=== PATIENT | female | born 1955 | race Hispanic/Latino ===

== ENCOUNTER 2016-11-17 08:53 | Outpatient (CLI) | payer BC ==
[2016-11-17 09:12] LABS: Basophils % (Auto) 0.8 % (0.0-1.8); Hematocrit 44.6 % (30.3-42.9); Hemoglobin 14.5 gm/dl (10.1-14.3); Mean Corpuscular HGB Conc 33 % (30-34); Mean Corpuscular Hemoglobin 30 pg (28-32); Mean Corpuscular Volume 91 fl (79-97); Platelet Count 242 K/mm3 (140-440); Red Blood Count 4.89 M/mm3 (3.65-5.03); Red Cell Distribution Width 13.2 % (13.2-15.2); White Blood Count 7.7 K/mm3 (4.5-11.0)
[2016-11-17 09:27] LABS: Alanine Aminotransferase 21 units/L (7-56); Albumin 4.2 g/dL (3.9-5); Albumin/Globulin Ratio 1.6 %; Alkaline Phosphatase 79 units/L (35-129); Anion Gap 16 mmol/L; BUN/Creatinine Ratio 18.75; Bilirubin,Total 0.3 mg/dL (0.1-1.2); Blood Urea Nitrogen 15 mg/dL (7-17); Carbon Dioxide 28 mmol/L (22-30); Chloride 101.3 mmol/L (98-107); Cholesterol 151 mg/dL (50-199); Glucose 99 mg/dL (65-100); HDL Cholesterol 71 mg/dL (40-59); LDL Cholesterol,Direct 55 mg/dL (50-130); Potassium 4.3 mmol/L (3.6-5.0); Sodium 141 mmol/L (137-145); Total Protein 6.9 g/dL (6.3-8.2); Triglycerides 128 mg/dL (2-149)
[2016-11-19 17:31] LABS: Vitamin D, 25-OH, Total 49 ng/mL (30-100)
== END 2016-11-17 08:54 | disposition home or self-care (01) ==
LOC: LAB 08:53
PROVIDERS: ATTEND Internal Medicine
DX: I10 Essential (primary) hypertension (principal); M80.08XD Age-related osteoporosis with current pathological fracture, vertebra(e), subsequent encounter for fracture with routine healing
CPT/HCPCS: 36415; 80053; 80061; 82306; 84436; 84443; 85025

== ENCOUNTER 2017-01-08 07:55 | Outpatient (CLI) | payer BC ==
[2017-01-08] MEDS ORDERED: PROVENTIL IH ONE (07:57)
--- NOTE | 2017-01-11 04:45 | Pulmonary Function Test ---
PULMONARY FUNCTION TEST. INTERPRETATION: Spirometry, forced vital capacity is mildly reduced below predicted values for age and height (2.44 liters). One second forced expiratory volume (FEV1) is within normal limits (2.06 liters). Flow volume loop shows normal inspiratory and expiratory flow pattern. Peak flow is normal. FEV1/FVC ratio is normal. Maximum voluntary ventilation is normal. Lung volumes obtained by nitrogen washout shows a slight reduction in thoracic gas volumes. Single breath diffusion of carbon monoxide is at lower limits of normal. Bronchodilator: There is no change in mechanics noted. Oximetry resting room air 93%. IMPRESSION: Normal pulmonary function study, maybe a minimal degree of restriction based on low vital capacity. No change in mechanics after bronchodilator. Failure to respond to nebulized bronchodilator in the laboratory should not preclude a clinical trial. JOB# [id number] [facility]/BETO
== END 2017-01-08 07:56 | disposition home or self-care (01) ==
LOC: PF 07:55
PROVIDERS: ATTEND Internal Medicine
DX: J45.20 Mild intermittent asthma, uncomplicated (principal)
CPT/HCPCS: 94060; 94640; 94727; 94729

== ENCOUNTER 2017-04-05 07:27 | Outpatient (CLI) | payer BC ==
[2017-04-05 08:18] LABS: Blood Urea Nitrogen 13 mg/dL (7-17)
--- NOTE | 2017-04-05 09:01 | Magnetic Resonance Report ---
MRI BRAIN WITH/WITHOUT CONTRAST: History: Headaches. Technique: Multiple T1 and T2 weighted images were obtained in multiple planes. Axial diffusion and gradient imaging was performed. Post contrast T1 images in two planes were obtained following IV gadolinium. COMPARISON: No relevant comparison at this facility. Findings: The brain parenchyma signal intensity and its alfaro-white interface are normal on all sequences. No abnormal parenchymal signal. No diffusion restriction, hemorrhage, mass effect or extra-axial fluid collection. Ventricular size is normal and symmetric. The basal cisterns are clear. The brainstem and cerebellar hemispheres are within normal limits. The fourth ventricle is midline. The paranasal sinuses and mastoid air cells are well aerated. Normal flow voids are identified in the appropriate vessels at the [place] of [place]. No abnormal enhancement is identified following IV gadolinium. Impression: 1. Unremarkable MRI brain with and without contrast.
== END 2017-04-05 07:28 | disposition home or self-care (01) ==
LOC: MRI 07:27
PROVIDERS: ATTEND Specialist
DX: R51 Headache (principal); R41.3 Other amnesia; R25.1 Tremor, unspecified; I10 Essential (primary) hypertension; J45.909 Unspecified asthma, uncomplicated; E78.00 Pure hypercholesterolemia, unspecified
CPT/HCPCS: 36415; 70553; 82565; 84520; 95819; A9577

== ENCOUNTER 2017-07-06 09:19 | Outpatient (CLI) | payer BC ==
--- NOTE | 2017-07-06 10:26 | Mammography Report ---
Screening mammogram: Bilateral mammotomograms in CC and lateral projections along with 2-D compiled images are obtained. Comparison is made to standard images from May 2016. There is a heterogeneous dense symmetrically distributed fibroglandular pattern. On the 2-D images no interval changes are noted. 2 small benign appearing nodules noted on the standard and brit[place] images of the right breast. No new findings. CAD used. Impression: Stable, benign breast pattern. Recommendation: Annual mammogram followup. BI-RADS CATEGORY: 1 = Negative ACR BI-RADS MAMMOGRAPHIC CODES: 0 = Needs additional imaging evaluation; 1 = Negative; 2 = Benign; 3 = Probably benign; 4 = Suspicious; 5 = Malignant; 6 = Known biopsy-proven malignancy COMMENT: 1. Dense breast tissue, i.e., adenosis, fibrocystic changes, etc., may obscure an underlying neoplasm. 2. Approximately 10% of cancers are not detected with mammography. 3. A negative mammography report should not delay biopsy if a clinically suspicious mass is present.
== END 2017-07-06 09:20 | disposition home or self-care (01) ==
LOC: MAMMO 09:19
PROVIDERS: ATTEND Obstetrics & Gynecology
DX: Z12.31 Encounter for screening mammogram for malignant neoplasm of breast (principal)
CPT/HCPCS: 77063; G0202; 77067

== ENCOUNTER 2017-11-30 09:19 | Outpatient (CLI) | payer BC ==
[2017-11-30 09:49] LABS: Basophils # (Auto) 0.1 K/mm3 (0.0-0.1); Basophils % (Auto) 0.8 % (0.0-1.8); Eosinophils # (Auto) 0.1 K/mm3 (0.0-0.4); Eosinophils % (Auto) 1.4 % (0.0-4.3); Hematocrit 44.3 % (30.3-42.9); Lymphocytes # (Auto) 2.3 K/mm3 (1.2-5.4); Lymphocytes % (Auto) 27.8 % (13.4-35.0); Mean Corpuscular HGB Conc 34 % (30-34); Mean Corpuscular Hemoglobin 31 pg (28-32); Mean Corpuscular Volume 90 fl (79-97); Monocytes # (Auto) 0.6 K/mm3 (0.0-0.8); Monocytes % (Auto) 6.7 % (0.0-7.3); Platelet Count 277 K/mm3 (140-440); Red Blood Count 4.91 M/mm3 (3.65-5.03); Red Cell Distribution Width 12.9 % (13.2-15.2)
[2017-11-30 10:02] LABS: Alanine Aminotransferase 23 units/L (7-56); Albumin 4.3 g/dL (3.9-5); BUN/Creatinine Ratio 14; Blood Urea Nitrogen 11 mg/dL (7-17); Calcium 9.2 mg/dL (8.4-10.2); Chol/HDL Ratio 2.57 %; HDL Cholesterol 57 mg/dL (40-59); Hemolysis Index 7
[2017-11-30 10:05] LABS: LDL Cholesterol,Direct 71 mg/dL (50-130)
[2017-11-30 10:21] LABS: Free T4 (Free Thyroxine) 1.14 ng/dL (0.76-1.46)
== END 2017-11-30 09:20 | disposition home or self-care (01) ==
LOC: LAB 09:19
PROVIDERS: ATTEND Internal Medicine
DX: I10 Essential (primary) hypertension (principal); E03.9 Hypothyroidism, unspecified; E78.2 Mixed hyperlipidemia
CPT/HCPCS: 36415; 80053; 80061; 84439; 84443; 85025

== ENCOUNTER 2017-12-21 08:50 | Outpatient (CLI) | payer BC ==
[2017-12-21] MEDS ORDERED: LEXISCAN IV ONE (09:53)
--- NOTE | 2017-12-22 00:17 | Treadmill Report ---
STRESS TEST INDICATION: Chest pain. ORDERING PHYSICIAN: Dr. Manuel Ludwig. FINDINGS: There is no scintigraphic evidence of myocardial ischemia. The left ventricle is normal in size and systolic function. The left ventricular ejection fraction is measured at 65%. There is normal wall motion and wall thickening on gated imaging. CONCLUSION: 1. Normal perfusion scan. 2. Low risk myocardial perfusion scan associated with 1-year cardiovascular event rate of less than 1%. JOB# [id number] [facility]/BETO
[2017-12-24 13:42] VITALS: BP 131/86
== END 2017-12-21 08:51 | disposition home or self-care (01) ==
LOC: CARD 08:50
PROVIDERS: ATTEND Internal Medicine
DX: R07.89 Other chest pain (principal)
CPT/HCPCS: 78452; 93017; A9502; J2785

== ENCOUNTER 2018-05-17 11:23 | Outpatient (CLI) | payer BC ==
[2018-05-17 11:42] LABS: Hematocrit 46.9 % (30.3-42.9); Hemoglobin 15.7 gm/dl (10.1-14.3); Mean Corpuscular HGB Conc 34 % (30-34); Mean Corpuscular Hemoglobin 31 pg (28-32); Mean Corpuscular Volume 91 fl (79-97); Platelet Count 319 K/mm3 (140-440); Red Blood Count 5.15 M/mm3 (3.65-5.03); Red Cell Distribution Width 13.7 % (13.2-15.2)
[2018-05-17 11:44] LABS: Bilirubin,Urine NEG (Negative); Blood,Urine NEG (Negative); Color,Urine Yellow (Yellow); Protein,Urine <15 mg/dL mg/dL (Negative); Urobilinogen,Urine < 2.0 mg/dL (<2.0)
[2018-05-17 12:08] LABS: Alanine Aminotransferase 17 units/L (7-56); Albumin 4.3 g/dL (3.9-5); BUN/Creatinine Ratio 14; Blood Urea Nitrogen 10 mg/dL (7-17); Calcium 9.4 mg/dL (8.4-10.2); Hemolysis Index 7
== END 2018-05-17 11:24 | disposition home or self-care (01) ==
LOC: LAB 11:23
PROVIDERS: ATTEND Specialist
DX: M05.70 Rheumatoid arthritis with rheumatoid factor of unspecified site without organ or systems involvement (principal); M32.10 Systemic lupus erythematosus, organ or system involvement unspecified; Z79.899 Other long term (current) drug therapy
CPT/HCPCS: 36415; 80053; 81001; 85027

== ENCOUNTER 2018-05-24 09:40 | Outpatient (CLI) | payer BC ==
--- NOTE | 2018-05-28 10:35 | Mammography Report ---
BONE DENSITY STUDY: Postmenopausal osteoporosis screening. DEFINITIONS: BMD = Bone Mineral Density T-score = BMD related to mean peak bone mass of young adult (mean expressed in Standard Deviation) Z-score = Age matched BMD expressed in SD World Health Organization (WHO) Diagnostic Criteria Normal T-score > -1 SD Osteopenia T-score between -1 and -2.4 SD Osteoporosis T-score -2.5 SD or below FINDINGS: The weighted average BMD of lumbar spine L1-L4 is 0.976 with a T-score of -0.6. There is significant levoscoliosis with focal sclerosis involving L3. The weighted average BMD of the left hip is 0.803 with a T-score of -1.1. The femoral neck BMD is 0.581 with a T. value score of -2.4. Compared to her prior examination of April 2016 there has been generalized decrease in the overall bone mineralization of the lumbar spine and hip. IMPRESSION: The patient's average T-score is diagnostic for osteopenia and average relative risk for fracture. NOTE: BMD is not the only risk factor for fracture; also consider factors such as the patient's age, risk of falling, previous osteoporotic fracture, family history of osteoporotic fractures, current smoker, and low body weight. Abdul's triangle is a region of interest in femur, predominantly of trabecular bone. It is not a true anatomic site, and [facility] does not recommend its use clinically.
== END 2018-05-24 09:41 | disposition home or self-care (01) ==
LOC: MAMMO 09:40
PROVIDERS: ATTEND Internal Medicine
DX: Z13.820 Encounter for screening for osteoporosis (principal); M85.88 Other specified disorders of bone density and structure, other site; I10 Essential (primary) hypertension; E78.2 Mixed hyperlipidemia; E03.9 Hypothyroidism, unspecified; J45.909 Unspecified asthma, uncomplicated; Z68.30 Body mass index [BMI] 30.0-30.9, adult; Z79.899 Other long term (current) drug therapy
CPT/HCPCS: 77080

== ENCOUNTER 2018-06-06 09:28 | Outpatient (CLI) | payer BC ==
[2018-06-06 09:52] LABS: Basophils # (Auto) 0.1 K/mm3 (0.0-0.1); Basophils % (Auto) 0.9 % (0.0-1.8); Eosinophils # (Auto) 0.1 K/mm3 (0.0-0.4); Eosinophils % (Auto) 0.9 % (0.0-4.3); Hematocrit 44.9 % (30.3-42.9); Lymphocytes # (Auto) 1.5 K/mm3 (1.2-5.4); Mean Corpuscular HGB Conc 33 % (30-34); Mean Corpuscular Hemoglobin 31 pg (28-32); Mean Corpuscular Volume 92 fl (79-97); Monocytes # (Auto) 0.4 K/mm3 (0.0-0.8); Monocytes % (Auto) 6.2 % (0.0-7.3); Platelet Count 288 K/mm3 (140-440); Red Cell Distribution Width 13.7 % (13.2-15.2)
[2018-06-06 10:16] LABS: Alanine Aminotransferase 15 units/L (7-56); Albumin 4.2 g/dL (3.9-5); BUN/Creatinine Ratio 16; Blood Urea Nitrogen 11 mg/dL (7-17); Calcium 9.6 mg/dL (8.4-10.2); Chol/HDL Ratio 2.36 %; HDL Cholesterol 66 mg/dL (40-59); Hemolysis Index 7; LDL Cholesterol,Direct 84 mg/dL (50-130)
== END 2018-06-06 09:29 | disposition home or self-care (01) ==
LOC: LAB 09:28
PROVIDERS: ATTEND Internal Medicine
DX: I10 Essential (primary) hypertension (principal); E03.9 Hypothyroidism, unspecified; E78.2 Mixed hyperlipidemia; E55.9 Vitamin D deficiency, unspecified
CPT/HCPCS: 36415; 80053; 80061; 82306; 84436; 84443; 85025

== ENCOUNTER 2018-07-18 09:47 | Outpatient (CLI) | payer BC ==
--- NOTE | 2018-07-19 09:19 | Mammography Report ---
Bilateral mammogram: Compared to 07/06/17. CAD study utilized. Findings: Predominance adipose tissue bilaterally. Benign densities bilaterally. No microcalcification. Normal axilla. Impression: Benign findings. Annual followup recommended. BI-RADS CATEGORY: 2 = Benign ACR BI-RADS MAMMOGRAPHIC CODES: 0 = Needs additional imaging evaluation; 1 = Negative; 2 = Benign; 3 = Probably benign; 4 = Suspicious; 5 = Malignant; 6 = Known biopsy-proven malignancy COMMENT: 1. Dense breast tissue, i.e., adenosis, fibrocystic changes, etc., may obscure an underlying neoplasm. 2. Approximately 10% of cancers are not detected with mammography. 3. A negative mammography report should not delay biopsy if a clinically suspicious mass is present. COMMENT: Patient follow-up letters are generated in [employer].
== END 2018-07-18 09:48 | disposition home or self-care (01) ==
LOC: MAMMO 09:47
PROVIDERS: ATTEND Obstetrics & Gynecology
DX: Z12.31 Encounter for screening mammogram for malignant neoplasm of breast (principal)
CPT/HCPCS: 77067

== ENCOUNTER 2018-10-25 11:47 | Outpatient (CLI) | payer BC ==
[2018-10-25 12:10] LABS: Basophils # (Auto) 0.1 K/mm3 (0.0-0.1); Eosinophils # (Auto) 0.1 K/mm3 (0.0-0.4); Eosinophils % (Auto) 1.2 % (0.0-4.3); Hematocrit 43.8 % (30.3-42.9); Hemoglobin 15.1 gm/dl (10.1-14.3); Lymphocytes # (Auto) 1.7 K/mm3 (1.2-5.4); Lymphocytes % (Auto) 21.3 % (13.4-35.0); Mean Corpuscular HGB Conc 34 % (30-34); Mean Corpuscular Volume 92 fl (79-97); Monocytes # (Auto) 0.6 K/mm3 (0.0-0.8); Platelet Count 274 K/mm3 (140-440); Red Blood Count 4.74 M/mm3 (3.65-5.03); Red Cell Distribution Width 13.3 % (13.2-15.2)
[2018-10-25 12:13] LABS: Bacteria,Urine 1+ /HPF (Negative); Bilirubin,Urine NEG (Negative); Blood,Urine NEG (Negative); Color,Urine Straw (Yellow); Protein,Urine <15 mg/dL mg/dL (Negative); RBC,Urine < 1.0 /HPF (0.0-6.0); Urobilinogen,Urine < 2.0 mg/dL (<2.0)
[2018-10-25 12:20] LABS: Protein/Creatinine Ratio,Urine 0.12
[2018-10-25 12:37] LABS: Alanine Aminotransferase 21 units/L (7-56); Albumin 4.2 g/dL (3.9-5); BUN/Creatinine Ratio 19; Blood Urea Nitrogen 13 mg/dL (7-17); Calcium 9.4 mg/dL (8.4-10.2); Hemolysis Index 14
== END 2018-10-25 11:48 | disposition home or self-care (01) ==
LOC: LAB 11:47
PROVIDERS: ATTEND Specialist
DX: M32.10 Systemic lupus erythematosus, organ or system involvement unspecified (principal); M05.70 Rheumatoid arthritis with rheumatoid factor of unspecified site without organ or systems involvement; M06.4 Inflammatory polyarthropathy; Z79.899 Other long term (current) drug therapy
CPT/HCPCS: 36415; 80053; 81001; 82570; 84156; 85025; 86160; 87086

== ENCOUNTER 2018-11-19 10:55 | Outpatient (CLI) | payer BC ==
--- NOTE | 2018-11-19 13:44 | XRay Report ---
BILATERAL SEAT, 2 VIEWS History: Primary osteoarthritis involving multiple joints. Findings: There is borderline bone mineralization. Mild joint space narrowing is noted at the first metatarsophalangeal joints bilaterally. The remaining joint spaces are within normal limits. No bony erosions. Large plantar spurs are identified bilaterally. No evidence for fracture or bone lesion. Accessory navicular bones are noted bilaterally. Impression: Mild osteoarthritic changes at the first metatarsophalangeal joints. Plantar spurs.
--- NOTE | 2018-11-19 13:46 | XRay Report ---
BILATERAL HANDS, 2 VIEWS History: Primary osteoarthritis involving multiple joints. Findings: Borderline bone mineralization. Moderate joint space narrowing and articular surface sclerosis is noted throughout the distal interphalangeal joints of both hands. There is relative sparing of the proximal interphalangeal joints and metacarpophalangeal joints. Moderate osteoarthritic changes are also noted at the base of the thumbs. No bony erosions, fracture or bone lesion. The soft tissues are unremarkable. Impression: Moderate osteoarthritic changes at the distal interphalangeal joints and base of the thumb bilaterally.
== END 2018-11-19 10:56 | disposition home or self-care (01) ==
LOC: XRAY 10:55
PROVIDERS: ATTEND Internal Medicine Rheumatology
DX: M19.041 Primary osteoarthritis, right hand (principal); M19.042 Primary osteoarthritis, left hand; M19.071 Primary osteoarthritis, right ankle and foot; M19.072 Primary osteoarthritis, left ankle and foot
CPT/HCPCS: 36415; 85652; 86140

== ENCOUNTER 2019-04-08 11:07 | Outpatient (CLI) | payer BC ==
[2019-04-08 11:51] LABS: Hemoglobin 14.7 gm/dl (10.1-14.3); Mean Corpuscular HGB Conc 34 % (30-34); Mean Corpuscular Volume 92 fl (79-97); Platelet Count 270 K/mm3 (140-440); Red Blood Count 4.66 M/mm3 (3.65-5.03); Red Cell Distribution Width 13.1 % (13.2-15.2)
[2019-04-08 11:57] LABS: Bilirubin,Urine NEG (Negative); Blood,Urine NEG (Negative); Color,Urine Yellow (Yellow); Protein,Urine <15 mg/dL mg/dL (Negative); Urobilinogen,Urine < 2.0 mg/dL (<2.0)
[2019-04-08 12:12] LABS: Erythrocyte Sedimentation Rate 5 mm/Hr (0-20)
[2019-04-08 12:14] LABS: Alanine Aminotransferase 19 units/L (7-56); Albumin 4.3 g/dL (3.9-5); BUN/Creatinine Ratio 20; Blood Urea Nitrogen 12 mg/dL (7-17); Calcium 9.7 mg/dL (8.4-10.2); Hemolysis Index 1
[2019-04-11 11:18] LABS: Vitamin D, 25-OH, D2 <4 ng/mL
[2019-04-12 10:32] LABS: ANA Screen, IFA Positive (Negative)
== END 2019-04-08 11:08 | disposition home or self-care (01) ==
LOC: LAB 11:07
PROVIDERS: ATTEND Internal Medicine Rheumatology
DX: M32.9 Systemic lupus erythematosus, unspecified (principal); M85.80 Other specified disorders of bone density and structure, unspecified site; M19.90 Unspecified osteoarthritis, unspecified site
CPT/HCPCS: 36415; 80053; 81001; 82306; 85027; 85652; 86038; 86140; 86160; 86200; 86618; 87086